=== PATIENT | male | born 1960 | race Caucasian/White ===

== ENCOUNTER 2020-04-26 08:32 | Outpatient (CLI) | payer OTHER ==
--- NOTE | 2020-04-26 11:17 | MRI ---
LUMBAR SPINE MRI WITH AND WITHOUT CONTRAST: HISTORY: Lumbar radiculopathy. FINDINGS: Appropriate T1 marrow signal intensity of the lumbar vertebrae. Lumbar spine vertebral body height is maintained. There is no fracture. Intrinsic T1 and T2 hyperintense foci at L1 and L4 likely represent hemangiomas. No significant STIR hyperintensity to suggest vertebral body edema or ligament ous injury. There are type I and type II Modic changes at L3-L4 and L4-L5 Appropriate signal intensity of the visualized paraspinal muscles and solid organs. Conus medullaris terminates at the superior aspect of L1. T12-L1: Adequate disc hydration. No posterior disc abnormality. No significant central canal stenosis or significant neural foraminal narrowing. L1-L2: Adequate disc hydration. No posterior disc abnormality. No significant central canal stenosis or significant neural foraminal narrowing. L2-L3: Disc desiccation is minimal. There is mild loss of disc space height. Broad-based disc bulge m inimally flattens the ventral thecal sac. There is contact upon both traversing L3 nerve roots without significant obscuration. Mild central canal stenosis. Patent bilateral neural foramina. L3-L4: Disc desiccation with mild to moderate loss of disc space height. Broad-based disc bulge, liga ment flavum thickening and facet hypertrophy are present. There is a central/right supraclavicular annular fissure. Annular fissure abuts the traversing right L4 nerve root. Contact upon bilateral tra versing L4 nerve roots with partial obscuration. Overall there is mild central canal stenosis and moderate to severe bilateral neural foraminal narrowing. L4-L5: Disc desiccation with moderate loss of disc space height. There is a left hemilaminotomy defec t. Minimal enhancing scar tissue at the operative site. No significant stenosis of the thecal sac. Moderate right and moderate left neural foraminal narrowing. L5-S1: Disc desiccation with moderate loss of disc space height. Broad-based disc bulge minimally con tacts the ventral epidural fat. Contact upon bilateral traversing S1 nerve roots without significant obscuration. No significant stenosis of the thecal sac. Moderate bilateral neural foramin al narrowing. IMPRESSION: 1. Post surgical changes with left hemilaminotomy defect at L4-L5. 2. Varying degrees of central canal stenosis and neural foramina narrowing as detailed above. Transcribed Date/Time: 04/26/2020 11:23 AM
[2020-04-26] MEDS ORDERED: Magnevist 469MG/ML 20 ML VIAL ONE (15:22)
== END 2020-04-26 08:33 | disposition home or self-care (01) ==
LOC: TBSIIMAG 08:32
PROVIDERS: ATTEND Neurological Surgery
DX: M54.16 Radiculopathy, lumbar region (principal); M48.061 Spinal stenosis, lumbar region without neurogenic claudication; M48.07 Spinal stenosis, lumbosacral region; Z98.890 Other specified postprocedural states
CPT/HCPCS: 72158; A9579

== ENCOUNTER 2021-05-28 08:07 | Outpatient (CLI) | payer BC | END 2021-05-28 08:08 | disposition home or self-care (01) | LOC: TBSIIMAG 08:07 | PROVIDERS: ATTEND Neurological Surgery | DX: M47.22 Other spondylosis with radiculopathy, cervical region (principal); M48.02 Spinal stenosis, cervical region | CPT/HCPCS: 72141 ==

== ENCOUNTER 2021-10-23 15:14 | Outpatient (CLI) | payer BC ==
[2021-10-24 08:33] LABS: SARS-CoV-2 PCR by NAA Not Detected (NotDetected)
== END 2021-10-23 15:15 | disposition home or self-care (01) ==
LOC: LABBT 15:14
PROVIDERS: ATTEND Neurological Surgery
DX: M54.12 Radiculopathy, cervical region (principal); Z20.822 Contact with and (suspected) exposure to COVID-19
CPT/HCPCS: U0003; U0005

== ENCOUNTER 2021-10-28 05:43 | Day surgery (SDC) | payer BC ==
[2021-10-23 13:08] VITALS: BMI 30.7
[2021-10-28] MEDS ORDERED: Thrombin 5000 UNITS/5 ML VIAL ONE (06:09)
[2021-10-28] MEDS ORDERED: Famotidine/PF 20 mg/2ml Vial ONE (06:29)
[2021-10-28] MEDS ORDERED: Scopolamine 1.5 mg/72 hour Patch ONE (06:29)
[2021-10-28] MEDS ORDERED: ceFAZolin (BATCH) 2 GM/100 ML BAG ONE ×2 (06:40→10:21)
[2021-10-28] MEDS ORDERED: Fentanyl 250 MCG/5 ML VIAL ONE (06:43)
[2021-10-28] MEDS ORDERED: Midazolam HCl 2 mg/2 ml Vial ONE (06:44)
[2021-10-28] MEDS ORDERED: Rocuronium Bromide 10 MG/ML (10ML VIAL) ONE (07:02)
[2021-10-28] MEDS ORDERED: Glycopyrrolate 0.2 MG/ML 5 ML SYRINGE ONE (07:02)
[2021-10-28] MEDS ORDERED: Ondansetron PF 4 MG/2 ML Vial ONE (07:02)
[2021-10-28] MEDS ORDERED: PROPOFOL 200 MG/20 ML VIAL ONE (07:02)
[2021-10-28] MEDS ORDERED: Lidocaine 1% PF 5 ML VIAL ONE ×2 (07:02)
[2021-10-28] MEDS ORDERED: Dexamethasone 20 MG/5 ML VIAL ONE (07:02)
[2021-10-28] MEDS ORDERED: Fentanyl 100 MCG/2 ML VIAL ONE (09:12)
[2021-10-28] MEDS ORDERED: Tamsulosin HCl 0.4 MG CAP ONE (09:49)
[2021-10-28] MEDS ORDERED: Promethazine HCl 25 MG/ML VIAL ONE (09:52)
[2021-10-28] MEDS ORDERED: Acetaminophen/Codeine 30-300mg Tablet ONE (10:21)
== END 2021-10-28 12:14 | disposition home or self-care (01) ==
LOC: SDC 05:43
PROVIDERS: ATTEND Neurological Surgery
PROC: 0RG10A0 Fusion of Cervical Vertebral Joint with Interbody Fusion Device, Anterior Approach, Anterior Column, Open Approach (ICD-10-PCS; principal; 2021-10-28)
DX: M54.12 Radiculopathy, cervical region (principal); F17.200 Nicotine dependence, unspecified, uncomplicated
CPT/HCPCS: 76000; C1713; C1776; J0690; J1100; J2250; J2405; J2550; J2704; J3010; S0028

== ENCOUNTER 2025-04-20 13:33 | Outpatient (CLI) | payer OTHER | END 2025-04-20 13:34 | disposition home or self-care (01) | LOC: BICMRI 13:33 | PROVIDERS: ATTEND Orthopaedic Surgery Hand Surgery | DX: S63.659A Sprain of metacarpophalangeal joint of unspecified finger, initial encounter (principal); G95.89 Other specified diseases of spinal cord ==